=== PATIENT | female | born 1950 | race Caucasian/White ===

== ENCOUNTER 2019-12-30 11:04 | Day surgery (SDC) | payer MEDICARE, OTHER, SELFPAY ==
[2019-12-30 11:15] VITALS: BP 130/90; PULSE 72; RESP 16; TEMP 36.5; O2SAT 95
[2019-12-30] MEDS: Tropicam./Phenyleph. (1/2.5%) 5 ML BTL OD ×3 (11:37→11:45)
[2019-12-30] MEDS: Balanced Salt Soln.-PLUS 500 ML BAG ×2 (12:27→12:29)
--- NOTE | 2019-12-30 12:29 | W.PM.DSUDISC ---
Discharge Plan Disposition Patient Disposition: HOME Condition: Good Discharge Details Attending Provider: Manny Kenny Primary Care Provider: Erika Sinclair Home Meds and New Rx's Prescriptions: No Action cyclobenzaprine 10 mg Tablet 10 mg PO Q8H PRNRF: 0 bupropion HCl 150 mg Tablet Sustained-Release 12 Hr 150 mg PO BID RF: 0 trazodone 50 mg Tablet 150 mg PO HS RF: 0 sumatriptan succinate 100 mg Tablet 0.5 - 1 mg PO DAILY PRNRF: 0 lorazepam 0.5 mg Tablet 0.5 mg PO DAILY PRNRF: 0 pantoprazole 40 mg Tablet,Delayed Release (Dr/Ec) 40 mg PO DAILY RF: 0 buspirone 10 mg Tablet 10 mg PO BID RF: 0 sertraline 25 mg Tablet 75 mg PO DAILY RF: 0 vitamin B complex [B-Stress] Tablet 1 tab PO DAILY RF: 0 epinephrine [EpiPen] 0.3 mg/0.3 mL Auto-Injector 3 ml IM PRN PRNRF: 0 fluticasone propionate 50 mcg/actuation [place],Suspension 2 spray INTRANASAL DAILY RF: 0 Discharge Instructions Stand Alone Forms: Post-op Topical Cataract, Shady Henry ([facility]) Discharge Orders Discharge Orders: Discharge Order (Routine); Ordered 12/30/19 Ordered By: Manny Kenny DS: Diagnosis Discharge Diagnosis (1) Nuclear sclerotic cataract of right eye: Status: Resolved (2) Cortical cataract of left eye: Status: Resolved
[2019-12-30] MEDS: Lidocaine 2% Jelly 6 ML SYR (12:32)
[2019-12-30] MEDS: Povidone-Iodine Ophth 30 ML BTL (12:32)
[2019-12-30] MEDS: Moxifloxacin-PF 1 MG/ML VIAL (12:50)
[2019-12-30] MEDS: Tetracaine 0.5% 4 ML BTL OD (12:51)
[2019-12-30] MEDS: Lidocaine 1% Pres-Free 5 ML VIAL (12:51)
--- NOTE | 2019-12-30 13:11 | ROE_ITS ---
Date of service: 12/30/19 Time of Service: 13:11 Operative Note Operative Note DATE OF PROCEDURE: 12/30/19 PRE-OP DIAGNOSIS: Nuclear cortical cataract, left eye POST-OP DIAGNOSIS: same PROCEDURE: Cataract extraction using phacoemulsification with intraocular lens implant, left eye SURGEON: Manny Kenny ANESTHESIA: MAC and local (sub-tenon's anesthetic infiltration) PATHOLOGY: none sent COMPLICATIONS: None Patient was transported to: same day Patient's condition: stable Implants: Boaz [employer] / [employer] Tecnis ZCB00 Indications: Progressive decreased vision due to cataract, left eye Procedure Description: CATARACT SURGERY OPERATIVE REPORT PREOPERATIVE DIAGNOSIS: Nuclear/cortical cataract, left eye POSTOPERATIVE DIAGNOSIS: Same OPERATION: Cataract extraction using phacoemulsification with posterior chamber intraocular lens implant, left eye. IOL: IOL Manager Of Broadcast Content/Model: [employer] Vision / THERESA Tecnis ZCB00 IOL Power: + 23.50 diopters IOL Serial Number: [id number] Optic Diameter: 6.0mm Haptic/Overall Diameter: 13.0mm PHACO INFO: Lonnie [employer] Vision System with OZil and Active Fluidics Cumulative Dispersed Energy (CDE): 12.37 seconds SURGEON: Manny Kenny MD, YOSVANY ANESTHESIA: Monitored Anesthesia Care (MAC), with local sub-tenon's anesthetic infiltration COMPLICATIONS: None SPECIMENS: None INDICATIONS FOR PROCEDURE: Patient is a 69-year-old lady with history of diminished visual acuity in her left eye secondary to the development of nuclear and cortical cataract. Should significant for cataract surgery to improve and maximize her vision PROCEDURE: The correct surgical eye was identified and marked as the left eye and the pupil was dilated in the preoperative area using mydriatics and cycloplegics. The dilated pupil size was 7.0 mm. Oral sedation was administered in the form of an Imprimis MKO Melt (midazolam 3mg/ketamine 25mg/ondansetron 2mg). The patient was brought to the operating room where cardiopulmonary monitoring was instituted and surgical time-out was performed, confirming the correct operative eye and IOL power. Topical anesthesia was administered and ophthalmic povidone-iodine 5% was instilled into the conjunctival fornices. Lidocaine gel was applied to the cornea and the suly-ocular area was prepped with Betadine 10% solution and draped in the usual sterile fashion for intraocular surgery, including an aperture drape. A Tegaderm transparent film dressing was cut in half and used to cover the lashes and lid margins. Care was taken to sequester the lashes and lid margins under the Tegaderm dressing. A lid speculum was placed between the lids of the operative eye and the Isaac-Cornel operating microscope was maneuvered into position. Kirby scissors were then used to make a conjunctival buttonhole approximately 6mm posterior to the limbus in the inferonasal quadrant. Blunt dissection was carried out to expose bare sclera, and a blunt-tipped sub-tenon?s anesthesia cannula was introduced and passed posteriorly along the globe where non- preserved plain lidocaine was injected into posterior sub-Tenon?s space. A sideport knife was used to make a paracentesis port superior/superiortemporally. Intraocular phenylephrine/lidocaine was injected into the anterior chamber. The anterior chamber was then filled with Healon Pro. A 2.4mm keratome knife was used to create a half-thickness groove at the limbus and then to construct a three-plane near-clear corneal tunnel extending 2.0mm into clear cornea in the temporal position. . A flap was raised on the anterior capsule and capsulorhexis forceps were used to complete a continuous curvilinear capsulorhexis of 4.5 mm. Capsulorrhexis was smaller than, the patient had constant eye movement. The eye had to be fixated with an instrument during creation of the capsulorrhexis. Balanced salt solution was then used to perform cortical cleaving hydrodissection and nuclear hydrodelineation until the lens could be freely rotated within the capsular bag. The lens nucleus was then disassembled and removed within the capsular bag and iris plane using phacoemulsification. Residual cortical material was removed using the 45-degree angled silicone I/A tip with 0.3mm port. The posterior capsule was carefully polished to remove as much residual lens epithelial cells as safely possible. The capsular bag was then inflated and the anterior chamber deepened with viscoelastic. The lens i mplant described above was inserted into the capsular bag using the THERESA [place] Injector. A Kuglen hook was used to dial the IOL into position. Residual viscoelastic was then removed first from posterior to the IOL, then from the anterior chamber using the I/A handpiece. The lens implant was noted to center nicely within the capsular bag. The incisions were stromally hydrated, and the anterior chamber was reformed using BSS. Then 0.5cc of moxifloxacin 1.0mg/ml were injected into the capsular bag and anterior chamber. The incisions were checked with a Weck spear and found to be secure. Several drops of ophthalmic povidone-iodine 5% were then applied to the eye followed by two drops of Imprimis combination prednisolone/moxifloxacin/nepafenac solution. The drapes were removed and a clear plastic protective eye shield was placed over the eye. The patient was then returned to [facility] in stable condition.
[2019-12-30 13:45] VITALS: BP 112/64; PULSE 86; RESP 16; TEMP 36.4; O2SAT 94
== END 2019-12-30 13:45 | disposition home or self-care (01) ==
PROVIDERS: PCP Physician Assistant; Visit Provider Ophthalmology
PROC: (CPT 66984; principal; 2019-12-30 14:30)
DX: H25.11 Age-related nuclear cataract, right eye (principal); K21.9 Gastro-esophageal reflux disease without esophagitis
CPT/HCPCS: 66984; V2632

== ENCOUNTER 2020-01-13 11:24 | Day surgery (SDC) | payer MEDICARE, OTHER, SELFPAY ==
[2020-01-13 11:30] VITALS: BP 125/75; PULSE 73; RESP 16; TEMP 36.3; O2SAT 93
[2020-01-13] MEDS: Tropicam./Phenyleph. (1/2.5%) 5 ML BTL OD ×3 (11:42→11:50)
[2020-01-13] MEDS: Tetracaine 0.5% 4 ML BTL OD (12:37)
[2020-01-13] MEDS: Balanced Salt Soln.-PLUS 500 ML BAG (12:38)
[2020-01-13] MEDS: Lidocaine 2% Jelly 6 ML SYR (12:39)
[2020-01-13] MEDS: Lidocaine 1% Pres-Free 5 ML VIAL (12:39)
[2020-01-13] MEDS: Moxifloxacin-PF 1 MG/ML VIAL (12:40)
[2020-01-13] MEDS: Povidone-Iodine Ophth 30 ML BTL (12:40)
--- NOTE | 2020-01-13 12:57 | W.PM.DSUDISC ---
Discharge Plan Disposition Patient Disposition: HOME Condition: Good Discharge Details Attending Provider: Manny Kenny Primary Care Provider: Erika Sinclair Home Meds and New Rx's Prescriptions: No Action cyclobenzaprine 10 mg Tablet 10 mg PO Q8H PRNRF: 0 bupropion HCl 150 mg Tablet Sustained-Release 12 Hr 150 mg PO BID RF: 0 trazodone 50 mg Tablet 150 mg PO HS RF: 0 sumatriptan succinate 100 mg Tablet 0.5 - 1 mg PO DAILY PRNRF: 0 lorazepam 0.5 mg Tablet 0.5 mg PO DAILY PRNRF: 0 pantoprazole 40 mg Tablet,Delayed Release (Dr/Ec) 40 mg PO DAILY RF: 0 buspirone 10 mg Tablet 10 mg PO BID RF: 0 sertraline 25 mg Tablet 75 mg PO DAILY RF: 0 vitamin B complex [B-Stress] Tablet 1 tab PO DAILY RF: 0 epinephrine [EpiPen] 0.3 mg/0.3 mL Auto-Injector 3 ml IM PRN PRNRF: 0 fluticasone propionate 50 mcg/actuation [place],Suspension 2 spray INTRANASAL DAILY RF: 0 Discharge Instructions Stand Alone Forms: Post-op Topical Cataract, Shady Henry ([facility]) Discharge Orders Discharge Orders: Discharge Order (Routine); Ordered 01/13/20 Ordered By: Manny Kenny DS: Diagnosis Discharge Diagnosis (1) Cortical cataract of right eye: Status: Resolved (2) Nuclear sclerotic cataract of right eye: Status: Resolved
[2020-01-13 13:23] VITALS: BP 110/74; PULSE 74; RESP 16; TEMP 36.4; O2SAT 94
--- NOTE | 2020-01-13 14:55 | ROE_ITS ---
Date of service: 01/13/20 Time of Service: 13:00 Operative Note Operative Note DATE OF PROCEDURE: 01/13/20 PRE-OP DIAGNOSIS: Nuclear/cortical cataract, right eye POST-OP DIAGNOSIS: same PROCEDURE: Cataract extraction using phacoemulsification with intraocular lens implant, right eye SURGEON: Manny Kenny ANESTHESIA: MAC and local (sub-tenon's anesthetic infiltration) ESTIMATED BLOOD LOSS: 0 PATHOLOGY: none sent COMPLICATIONS: None Patient was transported to: same day Patient's condition: stable Implants: Boaz and [employer] / [employer] Tecnis ZCB00 intraocular lens Indications: Progressive decreased vision due to cataract, right eye Procedure Description: CATARACT SURGERY OPERATIVE REPORT PREOPERATIVE DIAGNOSIS: Nuclear/cortical cataract, right eye POSTOPERATIVE DIAGNOSIS: Same OPERATION: Cataract extraction using phacoemulsification with posterior chamber intraocular lens implant, right eye. IOL: IOL Finishing Room Supervisor/Model: [employer] Vision / THERESA Tecnis ZCB00 IOL Power: + 23.0 diopters IOL Serial Number: [id number] Optic Diameter: 6.0mm Haptic/Overall Diameter: 13.0mm PHACO INFO: Lonnie [employer] Vision System with OZil and Active Fluidics Cumulative Dispersed Energy (CDE): 4.76 seconds SURGEON: Manny Kenny MD, YOSVANY ANESTHESIA: Monitored Anesthesia Care (MAC), with local sub-tenon's anesthetic infiltration COMPLICATIONS: None SPECIMENS: None INDICATIONS FOR PROCEDURE: The patient is a 69-year-old lady with history of diminished visual acuity in both eyes secondary to development of bilateral nuclear and cortical cataract. She has already undergone cataract surgery in her left eye and is doing well postoperatively. Now presents for cataract surgery in the right eye. PROCEDURE: The correct surgical eye was identified and marked as the right eye and the pupil was dilated in the preoperative area using mydriatics and cycloplegics. The dilated pupil size was 7.0 mm. Oral sedation was administered in the form of an Imprimis MKO Melt (midazolam 3mg/ketamine 25mg/ondansetron 2mg) x 2. The patient was brought to the operating room where cardiopulmonary monitoring was instituted and surgical time-out was performed, confirming the correct operative eye and IOL power. Topical anesthesia was administered and ophthalmic povidone-iodine 5% was instilled into the conjunctival fornices. Lidocaine gel was applied to the cornea and the suly-ocular area was prepped with Betadine 10% solution and draped in the usual sterile fashion for intraocular surgery, including an aperture drape. A Tegaderm transparent film dressing was cut in half and used to cover the lashes and lid margins. Care was taken to sequester the lashes and lid margins under the Tegaderm dressing. A lid speculum was placed between the lids of the operative eye and the Isaac-Cornel operating microscope was maneuvered into position. Kirby scissors were then used to make a conjunctival buttonhole approximately 6mm posterior to the limbus in the inferonasal quadrant. Blunt dissection was carried out to expose bare sclera, and a blunt-tipped sub-tenon?s anesthesia cannula was introduced and passed posteriorly along the globe where non- preserved plain lidocaine was injected into posterior sub-Tenon?s space. A sideport knife was used to make a paracentesis port inferiortemporally. Intraocular phenylephrine/lidocaine was injected into the anterior chamber. The anterior chamber was then filled with Healon Pro. A 2.4mm keratome knife was used to create a half-thickness groove at the limbus and then to construct a three-plane near-clear corneal tunnel extending 2.0mm into clear cornea in the superiortemporal position. . A flap was raised on the anterior capsule and capsulorhexis forceps were used to complete a continuous curvilinear capsulorhexis of 4.8 mm. Capsulorhexis was challenging, as was the remainder of the surgery due to constant patient movement. She was unable to maintain central steady fixation. Balanced salt solution was then used to perform cortical cleaving hyd rodissection and nuclear hydrodelineation until the lens could be freely rotated within the capsular bag. The lens nucleus was then disassembled and removed within the capsular bag and iris plane using phacoemulsification. Residual cortical material was removed using the I/A handpiece. The posterior capsule was carefully polished to remove as much residual lens epithelial cells as safely possible. The capsular bag was then inflated and the anterior chamber deepened with viscoelastic. The lens implant described above was inserted into the capsular bag using the THERESA [place] Injector. A Kuglen hook was used to dial the IOL into position. Residual viscoelastic was then removed first from posterior to the IOL, then from the anterior chamber using the I/A handpiece. The lens implant was noted to center nicely within the capsular bag. The incisions were stromally hydrated, and the anterior chamber was reformed using BSS. Then 0.5cc of moxifloxacin 1.0mg/ml were injected into the capsular bag and anterior chamber. The incisions were checked with a Weck spear and found to be secure. Several drops of ophthalmic povidone-iodine 5% were then applied to the eye followed by two drops of Imprimis combination prednisolone/moxifloxacin/nepafenac solution. The drapes were removed and a clear plastic protective eye shield was placed over the eye. The patient was then returned to Same Day Surgery in stable condition.
== END 2020-01-13 13:35 | disposition home or self-care (01) ==
PROVIDERS: PCP Physician Assistant; Visit Provider Ophthalmology
PROC: (CPT 66984; principal; 2020-01-13 15:30)
DX: H25.11 Age-related nuclear cataract, right eye (principal); K21.9 Gastro-esophageal reflux disease without esophagitis; F41.9 Anxiety disorder, unspecified
CPT/HCPCS: 66984; V2632